=== PATIENT | female | born 1995 | race Hispanic/Latino ===

== ENCOUNTER 2017-07-04 15:20 | Emergency (ER) | payer MEDICAID, OTHER ==
[2017-07-04] MEDS ORDERED: ACETAMINOPHEN EXTRA STRENGTH 500 MG TABLET ONE (17:25)
== END 2017-07-04 18:26 | disposition home or self-care (01) ==
LOC: EDH 15:20
DX: S92.355A Nondisplaced fracture of fifth metatarsal bone, left foot, initial encounter for closed fracture (principal); W10.8XXA Fall (on) (from) other stairs and steps, initial encounter; Y93.89 Activity, other specified; Y92.89 Other specified places as the place of occurrence of the external cause; Y99.8 Other external cause status
CPT/HCPCS: 73630

== ENCOUNTER 2023-01-03 08:22 | Emergency (ER) | payer OTHER ==
[~2023-01-03] VITALS: Ht 152.4 cm; Wt 74.4 kg
[2023-01-03] MEDS ORDERED: IBUPROFEN 400 MG TABLET PO ONE (09:00)
[2023-01-03] MEDS ORDERED: AMOX/CLAV 875/125MG TAB PO ONE (09:00)
[2023-01-03 09:23] VITALS: BP 111/75; PULSE 82; RESP 17; O2SAT 99
[2023-01-03] MEDS ORDERED: IBUP-2070 PO (09:53)
[2023-01-03] MEDS ORDERED: AMOX-427 PO (09:53)
== END 2023-01-03 10:06 | disposition home or self-care (01) ==
LOC: EDH 08:22
DX: H66.92 Otitis media, unspecified, left ear (principal); H60.91 Unspecified otitis externa, right ear; Z90.49 Acquired absence of other specified parts of digestive tract